=== PATIENT | female | born 1975 | race Caucasian/White ===

== ENCOUNTER 2020-11-30 15:58 | Emergency (ER) | payer OTHER ==
[~2020-11-30 15:58] MED LIST: AMITRIPTYLINE100 MG PO; ANORO ELLIPTA1 EACH INH; FLEXERIL 10 MG10 MG PO; GABAPENTIN600 MG PO; IBU800 MG PO; IBUPROFEN800 MG PO; IMITREX100 MG PO; KEFLEX CAP 500500 MG PO; NORCO 10-325 T1 EACH PO; NORCO 5-325 TA1 EACH PO; REMERON15 MG PO; REQUIP2 MG PO; TOPAMAX100 MG PO; VENTOLIN HFA 66.7 GM INH; VITAMIN C 500500 MG PO
== END 2020-11-30 16:44 | disposition left against medical advice (07) ==
LOC: ER1 15:58
DX: R07.9 Chest pain, unspecified (principal); R06.02 Shortness of breath
CPT/HCPCS: 93005; 99285